=== PATIENT | female | born 1965 | race Caucasian/White ===

== ENCOUNTER 2024-07-03 17:00 | Emergency (ER) | payer SELFPAY ==
[~2024-07-03] VITALS: Ht 162.6 cm; Wt 72.6 kg
[2024-07-03 17:28] VITALS: BP 157/91; TEMP 98.8; O2SAT 98
== END 2024-07-03 19:37 | disposition home or self-care (01) ==
LOC: ER 17:03
DX: I11.0 Hypertensive heart disease with heart failure (principal); I50.9 Heart failure, unspecified
CPT/HCPCS: 71045-TC